=== PATIENT | female | born 1970 | race Caucasian/White ===

== ENCOUNTER → 2017-02-28 | Outpatient (CLI) | payer BC ==
--- NOTE | 2017-02-28 16:06 | MAMMOGRAPHY REPORT ---
BILATERAL DIGITAL SCREENING MAMMOGRAM TOMOSYNTHESIS WITH CAD: 02/28/2017 CLINICAL HISTORY: Routine screening. Patient has no complaints. TECHNIQUE: Breast tomosynthesis in addition to standard 2D mammography was performed. Current study was also evaluated with a Computer Aided Detection (CAD) system. COMPARISON: Comparison is made to exams dated: 08/05/2013 mammogram, 07/30/2012 mammogram, 1 mammogram, 07/26/2010 mammogram, 07/24/2009 mammogram - [facility], and 07/23/2008. BREAST COMPOSITION: The tissue of both breasts is heterogeneously dense, which may obscure small mas ses. FINDINGS: The parenchyma pattern is similar to prior exams. No suspicious mass, architectural distor tion or cluster of suspicious microcalcifications is seen. IMPRESSION: ACR BI-RADS CATEGORY 1: NEGATIVE There is no mammographic evidence of malignancy. A 1 year screening mammogram is recommended. The pa tient will receive written notification of the results. Approximately 10% of breast cancers are not detected with mammography. A negative mammographic report should not delay biopsy if a clinically suggestive mass is present. Priya Bateman M.D. ay/:02/28/2017 15:49:18 Personal Injury Specialist: Candice ARNDT(Fransisca)(M), [facility] letter sent: Normal 1/2 BI-RADS Code: ACR BI-RADS Category 1: Negative
== END | disposition home or self-care (01) ==
LOC: C.MAMM 11:16
PROVIDERS: ATTEND Family Medicine
DX: Z12.31 Encounter for screening mammogram for malignant neoplasm of breast (principal)

== ENCOUNTER 2017-09-13 08:35 | Observation (INO) | payer BC ==
[2017-09-01 09:50] VITALS: BMI 26.0
--- NOTE | 2017-09-01 10:16 | PAT Medication Instructions ---
Service Date Sep 01, 2017. Current Home Medication List Leonard Carb & Mag Hydrox-Simeth (Rolaids Advanced 1000-200-40 mg), 1-2 TAB PO PRN Ibuprofen Tab (Advil), 400 MG PO PRN Levonorgestrel (Iud) (Mirena), 1 UNIT UD Venlafaxine Hcl (Effexor Extended Rel), 150 MG PO QAM Medication Instructions For Your Scheduled Surgery - Continue as directed: Levonorgestrel (Iud) (Mirena), 1 UNIT UD - Check with surgeon for instructions: Ibuprofen Tab (Advil), 400 MG PO PRN - Hold the following medications the morning of surgery: Leonard Carb & Mag Hydrox-Simeth (Rolaids Advanced 1000-200-40 mg), 1-2 TAB PO PRN - Take the following medications the morning of surgery with a sip of water: Venlafaxine Hcl (Effexor Extended Rel), 150 MG PO QAM If you have any questions please call us at [phone] or [phone] or [phone]
[2017-09-01 11:02] LABS: BASO % 0.6 %; BASO ABS # 0.04 K/uL (0-0.2); EOS % 2.7 %; EOS ABS # 0.18 K/uL (0-0.5); HEMOGLOBIN 14.3 g/dL (12.0-16.0); IG# 0.03 K/uL (0.00-0.02); LYMPH % 42.3 %; LYMPH ABS # 2.87 K/uL (1.2-3.4); MEAN CELL VOLUME 94.6 fL (80-100); MEAN CORPUSCULAR HEMOGLOBIN 32.2 pg (25-34); MEAN PLATELET VOLUME 9.6 fL (7.4-10.4); MONO % 6.6 %; MONO ABS # 0.45 K/uL (0.11-0.59); NEUT % 47.4 %; NEUT ABS # 3.21 K/uL (1.4-6.5); PLATELET COUNT 347 K/uL (130-400); RED CELL DISTRIBUTION WIDTH CV 13.1 % (11.5-14.5); RED CELL DISTRIBUTION WIDTH SD 45.3 fL (36.4-46.3); WHITE BLOOD COUNT 6.78 K/uL (4.8-10.8)
[2017-09-01 11:20] LABS: PTT PATIENT 26.1 SECONDS (21.0-31.0)
[2017-09-01 13:02] LABS: CALCIUM 9.1 mg/dl (8.5-10.1); CREATININE 0.8 mg/dl (0.60-1.20); POTASSIUM 3.9 mmol/L (3.5-5.1)
[~2017-09-13] VITALS: Ht 170.2 cm; Wt 76.2 kg
[2017-09-13] VITALS (8 sets, daily range): BP systolic 115–129; BP diastolic 72–79; PULSE 65–82; TEMP 36.5–37.1; O2SAT 93–100; Ht 170.2 cm; Wt 76.2 kg
[~2017-09-13 08:35] MED LIST: ATROPINE SULFATE 0.1 MG/ML 5ML SYR IV PRN; CAL1CHW4 PO; CEFAZOLIN 2000MG IV PUSH 10 ML IV SCH; EpHEDrine SULFATE INJ 50 MG/ML AMP IV PRN; HYDROmorphone INJ 2 MG/ML SYR/VIAL IV PRN; IBUP-103 PO; LACTATED RINGER'S 1000ML 1,000 ML IV SCH; LEVO1IUD2; ONDANSETRON INJ 2 MG/ML 2 ML VIAL IV PRN; PHENYLEPHRINE 100MCG/ML 5ML SYR IV PRN; VENL150C56 PO
[2017-09-13] MEDS ORDERED: ACET-1311 PO (09:16)
[2017-09-13] MEDS ORDERED: SODIUM CHLORIDE 0.9% INJ 10 ML VIAL ONE (09:43)
[2017-09-13] MEDS ORDERED: GLYCOPYRROLATE INJ 0.2 MG/ML VIAL ONE ×2 (09:43→13:19)
[2017-09-13] MEDS ORDERED: LARYING-O-JET KIT (LTA) ONE (09:43)
[2017-09-13] MEDS ORDERED: MIDAZOLAM HCL 1 MG/ML 2ML VIAL ONE (09:43)
[2017-09-13] MEDS ORDERED: LIDOCAINE HCL 2% 2 ML VIAL (20MG/ML) ONE (09:43)
[2017-09-13] MEDS ORDERED: NEOSTIGMINE METHYLSULFATE 5 MG/5 ML SYR ONE (09:43)
[2017-09-13] MEDS ORDERED: DEXAMETHASONE SOD INJ 4 MG/ML VIAL ONE (09:43)
[2017-09-13] MEDS ORDERED: HYDROmorphone INJ 2 MG/ML SYR/VIAL ONE (09:43)
[2017-09-13] MEDS ORDERED: PROPOFOL IV EMULSION 10 MG/ML 20 ML VIAL IV ONE (09:43)
[2017-09-13] MEDS ORDERED: ONDANSETRON INJ 2 MG/ML 2 ML VIAL ONE ×2 (09:43→13:19)
[2017-09-13] MEDS ORDERED: FENTANYL CITRATE INJ 50 MCG/1 ML 2 ML VIAL ONE (09:43)
--- NOTE | 2017-09-13 11:23 | History & Physical Bridge Note ---
H&P Re-Evaluation Bridge Note: I have examined the patient, reviewed the History & Physical and in the interval since the performance of the History & Physical I have noted the following changes of clinical significance: No changes noted
[2017-09-13] MEDS ORDERED: BUPIVACAINE 0.25% 30 ML VIAL ONE (11:30)
[2017-09-13] MEDS ORDERED: LIDOCAINE/EPINEPHRINE 1% 20 ML VIAL ONE (11:30)
[2017-09-13] MEDS ORDERED: EpHEDrine SULFATE 50MG/5ML SYR ONE ×2 (12:10→12:20)
[2017-09-13] MEDS ORDERED: PHENYLEPHRINE 100MCG/ML 5ML SYR ONE (12:20)
[2017-09-13] MEDS ORDERED: ACETAMINOPHEN 1000 MG/100 ML IV IV ONE (12:47)
[2017-09-13] MEDS ORDERED: ROCURONIUM BROMIDE 10 MG/ML 5 ML VIAL IV ONE (14:43)
--- NOTE | 2017-09-13 15:22 | [facility] Post Operative Brief Note ---
Immediate Operative Summary Operative Date Sep 13, 2017. Pre-Operative Diagnosis Bilateral Breast Hypertrophy Post-Operative Diagnosis Bilateral Breast Hypertrophy Procedure(s) Performed Bilateral Breast Reduction Surgeon Dr. Penelope Russell Director College Surgeon(s) Sadia Duong PA-C Estimated Blood Loss 25mL Findings bilateral NACs pink and viable Specimens A. Left Breast Tissue (690 grams) B. Right Breast Tissue (616 grams) Drains LINDA x2 Anesthesia General Complication(s) None Disposition Recovery Room / PACU
[2017-09-13] MEDS ORDERED: ONDANSETRON INJ 2 MG/ML 2 ML VIAL IV PRN (15:30)
[2017-09-13] MEDS ORDERED: PROMETHAZINE HCL INJ 12.5 MG in SODIUM CHLORIDE 0.9% 50ML 50 ML IV PRN (15:30)
[2017-09-13] MEDS ORDERED: MoRPHine SULFATE 4 MG/ML 1 ML CARP\\VIAL IV PRN (15:30)
[2017-09-13] MEDS ORDERED: OXAZEPAM 10MG CAP PO PRN (15:30)
[2017-09-13] MEDS ORDERED: DiphenhydrAMINE HCL 50 MG/ML VIAL IV PRN (15:30)
[2017-09-13] MEDS ORDERED: CEFAZOLIN IV 2,000 MG in DEXTROSE 5% 50ML 50 ML IV SCH (15:30)
[2017-09-13] MEDS ORDERED: MoRPHine SULFATE 2 MG/ML CARP IV PRN ×2 (15:30)
[2017-09-13] MEDS ORDERED: OXYCODONE/ACETAMINOPHEN 5-325 TAB PO PRN (15:30)
[2017-09-13] MEDS ORDERED: ACETAMINOPHEN 325 MG TAB PO PRN (15:30)
[2017-09-13] MEDS ORDERED: IV FLUIDS COMPLETED PRN (16:15)
--- NOTE | 2017-09-13 16:21 | OPERATIVE REPORT ---
DATE OF OPERATION: 09/13/2017 PREOPERATIVE DIAGNOSIS: Bilateral symptomatic macromastia. POSTOPERATIVE DIAGNOSIS: Same. PROCEDURE: Bilateral reduction mammoplasty. SURGEON: Dr. Penelope Russell. PACKING MACHINE FEEDER: Sadia Duong PA-C. ANESTHESIA: General. COMPLICATIONS: None. INDICATION FOR THE PROCEDURE: The patient is a 47-year-old female who presented to my office with complaints of back, neck and shoulder pain related to macromastia. After discussion, she elected to undergo bilateral breast reduction surgery. BRIEF DESCRIPTION OF THE PROCEDURE: Risks, benefits, and alternatives of the procedure were explained to the patient who agreed and signed consent. She was identified and marked in the preoperative holding area. She was brought to the operating room where she was positioned supine and placed under general anesthesia without incident. Surgical site was prepped and draped sterilely. A time-out procedure was performed. I began with the left side. Markings were reassessed and a 7 cm pedicle was marked. 1% lidocaine with epinephrine was used to anesthetize the planned incisions. A 42 mm cookie cutter was used to circumscribe the nipple-areolar complex. The previously marked 8 cm pedicle was incised using 15 blade scalpel and deepithelialized. I began with the medial dissection of the pedicle using electrocautery. Cautery was used to incise through dermis and breast parenchyma down to the chest wall, taking care not to undermine the pedicle during dissection. A similar procedure was undertaken on the lateral aspect of the pedicle again taking care not to undermine. Lastly, the pedicle was dissected out superiorly using electrocautery and this was dissected down to the chest wall as well. I then began with excision of the medial breast tissue followed by lateral breast tissue and surrounding keyhole incision. A 15 blade scalpel was used to make the inframammary fold incision and electrocautery was used to deepen the incision through dermis and breast parenchyma. Dissection was then carried superiorly along pectoralis fascia to the level of the superior incision. Superior incision was incised using 15 blade scalpel and again dissected using electrocautery. This was undertaken laterally and then around the keyhole portion of the incision. Care was taken to leave some fat on the lateral pectoralis fascia in order to protect the T4 intercostal nerve. Hemostasis was achieved with electrocautery. Specimen was removed in its entirety and passed off for weighing. Additional resection underneath the flap was taken until a total of 690 grams were removed from the left breast. The wound was irrigated with saline and hemostasis was achieved with electrocautery. A 0.25% Marcaine plain was used to anesthetize the incisions as well as the pectoralis fascia. A 15 Uzbek Romie drain was brought out through a separate stab incision. The nipple-areolar complex was brought into the keyhole using 2-0 Vicryl deep dermal suture. The wound was closed first in a lateral to mid breast direction using 2-0 Vicryl deep dermal sutures and then medial to mid breast using 2-0 Vicryl deep dermal sutures. Vertical limb was also approximated using 2-0 Vicryl deep dermal sutures. The nipple-areolar complex was inset using 2-0 Vicryl deep dermals. Next, the superficial dermal layer was closed using 2-0 PDO running Quill suture along the inframammary fold and 3-0 PDS interrupted dermal sutures for the vertical limb and nipple-areolar complex. Lastly, a 3-0 Monocryl running subcuticular suture was placed. A similar procedure was undertaken on the right side. Maximal excision weight of 616 grams. Following the bilateral reduction, the breasts were reasonably symmetric and nipple-areolar complexes were pink and viable, bilaterally. Following closure, Dermabond Prineo was applied along the inframammary fold and vertical limb incisions and Dermabond was placed around the nipple-areolar complex. Dry dressings and a surgical bra were placed. The patient was awakened and transferred to recovery in satisfactory condition. Sadia Duong PA-C was present and scrubbed throughout the entire procedure and was instrumental in providing retraction during dissection of the pedicle and assisting in simultaneous wound closure. I attest to the content of the Intraoperative Record and any orders documented therein. Any exception s are noted below.
--- NOTE | 2017-09-13 16:21 | Anesthesiology Progress Note ---
Anesthesia Post Op Note Date & Time Sep 13, 2017 at 16:21 Vital Signs Pain Intensity: 2 Vital Signs Past 12 Hours Date Time Temp Pulse Resp B/P (MAP) Pulse Ox O2 Delivery O2 Flow Rate FiO2 09/13/17 16:15 36.7 87 12 126/82 97 Nasal Cannula 2 09/13/17 16:05 88 12 123/72 97 Nasal Cannula 2 09/13/17 15:55 92 18 122/77 100 Oxymask 10 09/13/17 15:45 89 18 111/72 100 Oxymask 10 09/13/17 15:38 37.0 101 24 124/71 99 Oxymask 10 09/13/17 09:05 37 73 20 129/79 (96) 99 Room Air Notes Mental Status: alert / awake / arousable, participated in evaluation Pt Amnestic to Procedure: Yes Nausea / Vomiting: adequately controlled Pain: adequately controlled Airway Patency, RR, SpO2: stable & adequate BP & HR: stable & adequate Hydration State: stable & adequate Anesthetic Complications: no major complications apparent
[2017-09-13] MEDS: LACTATED RINGER'S 1000ML 1,000 ML IV SCH (18:02)
[2017-09-13] MEDS ORDERED: LORAZEPAM 0.5 MG TAB PO ONE (18:30)
[2017-09-13] MEDS ORDERED: NURSING VERBAL MED ORDER ONE (18:30)
[2017-09-13] MEDS ORDERED: LORAZEPAM 0.5 MG TAB PO PRN (19:00)
[2017-09-13] MEDS: CEFAZOLIN IV 2,000 MG in SYRINGE 0 ML IV SCH (20:01)
[2017-09-13] MEDS: OXYCODONE/ACETAMINOPHEN 5-325 TAB PO PRN (20:33)
--- NOTE | 2017-09-13 21:00 | NUR ---
ID/OBS note: Pt alert and oriented x4. OOB with 1 assist. Voiding in the bathroom without difficulty. PO pain medication given for bilateral incision breast pain. IVF infusing as per md order. Dressing(4x4,Kerlix,paper tape) and bra intact to bilateral breast. Lungs clear. Pt denies chest pain and SOB. Pt will continue to be monitored and assessed throughout the shift.
--- NOTE | 2017-09-14 | NUR ---
OBS: A&Ox4. VSS. IVF infusing per MD order. Pain controlled with prn meds. Voiding in toilet. Ambulating with 1 assist. Plan d/c home. Will continue to monitor.
--- NOTE | 2017-09-14 04:00 | NUR ---
OBS: Patient resting in bed at this time. VSS. Pain controlled with prn meds. Cap refill immediate for b/l breasts. Voiding adequate amount of urine in toilet. Will continue to monitor.
[2017-09-14] MEDS: OXYCODONE/ACETAMINOPHEN 5-325 TAB PO PRN ×2 (04:09→08:33)
[2017-09-14] MEDS: CEFAZOLIN IV 2,000 MG in SYRINGE 0 ML IV SCH (04:10)
[2017-09-14] MEDS: LACTATED RINGER'S 1000ML 1,000 ML IV SCH (04:10)
[2017-09-14 07:41] VITALS: BP 116/69; PULSE 93; TEMP 37; O2SAT 96
--- NOTE | 2017-09-14 08:06 | Surgery Progress Note ---
Surgery Progress Note Date of Service Sep 14, 2017. Subjective Post OP Day: 1 + feeling well, + pain controlled, No complaints, No nausea, No vomiting Had anxiety last night. Verbal order given for Ativan. Patient reports anxiety has resolved. Objective Vital Signs: Date Time Temp Pulse Resp B/P (MAP) Pulse Ox O2 Delivery O2 Flow Rate FiO2 09/14/17 07:41 37.0 93 16 116/69 (85) 96 Room Air 09/13/17 23:25 Room Air 09/13/17 23:10 37.0 65 16 116/74 (88) 93 Room Air 09/13/17 20:01 36.6 68 18 123/77 (92) 100 Room Air 09/13/17 18:30 37.1 71 16 120/75 (90) 100 Nasal Cannula 2.0 09/13/17 17:54 100 Nasal Cannula 2.0 09/13/17 17:30 36.5 72 16 115/72 (86) 100 Nasal Cannula 2.0 09/13/17 17:00 36.5 75 18 120/77 (91) 99 Nasal Cannula 2.0 09/13/17 16:25 97 Nasal Cannula 2.0 09/13/17 16:25 37.1 82 14 122/76 (91) 97 Nasal Cannula 2.0 09/13/17 16:25 97 Nasal Cannula 2.0 09/13/17 16:15 36.7 87 12 126/82 97 Nasal Cannula 2 09/13/17 16:05 88 12 123/72 97 Nasal Cannula 2 09/13/17 15:55 92 18 122/77 100 Oxymask 10 09/13/17 15:45 89 18 111/72 100 Oxymask 10 09/13/17 15:38 37.0 101 24 124/71 99 Oxymask 10 09/13/17 09:05 37 73 20 129/79 (96) 99 Room Air Physical Exam: Romie drainage (serous and bloody) General Appearance: WD/WN, no apparent distress Incision(s): clean, dry, intact, no erythema, findings (nipples pink and with sensation bilat) Assessment & Plan s/p bilateral breast reduction POD#1. Feeling well. Anxiety resolved. Drains removed. Will d/c home today and f /u in office tomorrow.
--- NOTE | 2017-09-14 08:09 | Discharge Instructions ---
Discharge Instructions Date of Service Sep 14, 2017. Admission Reason for Admission: Bilateral Symptomatic Macromastia Discharge Discharge Diagnosis / Problem: macromastia Discharge Goals Goal(s): Decrease discomfort, Improve function Activity Recommendations Activity Limitations: per Instructions/Follow-up section ACTIVITY RECOMMENDATIONS: __Normal activities _x_No bending, lifting or straining __No driving __Driving allowed when you are off pain medications _x_Walking permitted __You should have help at home for ___ days DRESSINGS: __No dressings required _x_Keep dressings dry/in place until first office visit __Remove dressings ___ and leave dressings off __Apply ice ___ days __Remove dressings and reapply garment __Apply antibiotic ointment (Bacitracin, Neosporin, etc) to wounds 3-4 times/ day for 10 days BATHING: _x_Keep dressings dry __Sponge bathing permitted __Showering permitted _x_No swimming, hot tubs or soaking in a tub MEDICATIONS: Resume previous medications unless instructed otherwise by your surgeon. _x_Do not use aspirin, Motrin, Advil or Ibuprofen as these may promote bleeding. Please use Tylenol. _x_Prescription(s) provided: prescription for pain medication was provided at your last office visit OTHER INSTRUCTIONS: __Record drain output 2-3 times per day SPECIAL CARE INSTRUCTIONS: * It is normal to have a mild fever after surgery. If your temperature is higher than 101.5 degrees F, please call the office at [phone]. * Constipation is a typical side effect of pain medication. An over-the- counter stool softener will help relieve this. * Leaking around surgical drains may occur and should not cause concern. Sometimes these drains become clogged. If this happens, remove the bulb and milk the clot out of the tube, then replace the bulb. * Drainage from wounds after liposuction is normal and should be expected. Garments will become soiled. You should protect furniture and bedding. This drainage should mostly subside within 2-3 days. Leave garments in place unless instructed to remove them. * If you have unusual drainage from a wound or are concerned you have an infection or have any questions or concerns, please call the office at [phone]. FOLLOW UP VISIT: If not already scheduled, please call the office, , when you return home after surgery to schedule an appointment to be seen in __1_ days. . Current Hospital Diet Patient's current hospital diet: Regular Diet Discharge Diet Recommended Diet: Regular Diet Procedures Procedures Performed: Bilateral Breast Reduction Pending Studies Studies pending at discharge: yes List of pending studies: pathology Medical Emergencies . Who to Call and When: Medical Emergencies: If at any time you feel your situation is an emergency, please call 911 immediately. . Non-Emergent Contact Non-Emergency issues call your: Primary Care Provider, Surgeon . "Provider Documentation" section prepared by Sadia Duong. . VTE Core Measure Inpt VTE Proph given/why not?: SCD's [place] Drug Monitoring Program Search Results: no issues identified
--- NOTE | 2017-09-14 08:13 | Discharge Summary ---
Discharge Summary Date of Service Sep 14, 2017. Admission Date/Reason Sep 13, 2017 at 09:30 Bilateral Symptomatic Macromastia. Discharge Date/Disposition Sep 14, 2017 Home Diagnosis Principal Diagnosis: macromastia Procedure(s) Performed bilateral breast reduction Medication Reconciliation Continued Medications: Acetaminophen (Tylenol) 325 Mg Tab 650 MG PO, TAB Leonard Carb & Mag Hydrox-Simeth (Rolaids Advanced 1000-200-40 mg) 1 Chw Chw 1-2 TAB PO PRN Levonorgestrel (Iud) (Mirena) 20 Mcg/24 Hr Iud 1 UNIT UD Venlafaxine Hcl (Effexor Extended Rel) 150 Mg Cap 150 MG PO QAM, CAP Discontinued Medications: Ibuprofen Tab (Advil) 200 Mg Tab 400 MG PO PRN, TAB Admission Physical Exam As per Admitting History & Physical. Hospital Course Patient presented to [facility] with history of symptomatic macromastia. She was taken to the OR and underwent bilateral breast reduction. There were no intraoperative complications. She was taken to recovery and transferred to Med/ Surg. During the night, patient experienced anxiety and was given Ativan which relived her symptoms. On POD#1 she had good pain control. On exam, her incisions were CDI and nipples pink and with sensation bilaterally. She had serosanguineous drainage bilaterally and drains were removed. She was d/c home with instructions to follow-up in office the following day. Discharge Instructions Please refer to the electronic Patient Visit Report (Discharge Instructions) for additional information.
[2017-09-14 08:26] VITALS: BP 116/69; PULSE 93; TEMP 37; O2SAT 96
--- NOTE | 2017-09-14 08:34 | Anesthesiology Progress Note ---
Anesthesia Post Op Note Date & Time Sep 14, 2017 at 08:33 Vital Signs Pain Intensity: 5.0 Vital Signs Past 12 Hours Date Time Temp Pulse Resp B/P (MAP) Pulse Ox O2 Delivery O2 Flow Rate FiO2 09/14/17 07:41 37.0 93 16 116/69 (85) 96 Room Air 09/14/17 07:25 Room Air 09/13/17 23:25 Room Air 09/13/17 23:10 37.0 65 16 116/74 (88) 93 Room Air Notes Mental Status: alert / awake / arousable, participated in evaluation Pt Amnestic to Procedure: Yes Nausea / Vomiting: adequately controlled Pain: adequately controlled Airway Patency, RR, SpO2: stable & adequate BP & HR: stable & adequate Hydration State: stable & adequate Anesthetic Complications: no major complications apparent
[2017-09-14] MEDS ORDERED: MULTIVITAMIN TAB PO SCH (09:00)
[2017-09-14] MEDS ORDERED: VENLAFAXINE HCL XR 150 MG CAPXR PO SCH (09:00)
== END 2017-09-14 10:00 | disposition home or self-care (01) ==
LOC: C.ACU 08:35 → C.MSN 09:30 → ENRESERV 16:05
PROVIDERS: ADMIT Plastic Surgery; ATTEND Plastic Surgery
DX: N62 Hypertrophy of breast (principal); F41.8 Other specified anxiety disorders; Z97.5 Presence of (intrauterine) contraceptive device; Z79.899 Other long term (current) drug therapy